=== PATIENT | female | born 1970 | race Caucasian/White ===

== ENCOUNTER 2018-11-18 12:00 | Day surgery (SDC) | payer OTHER ==
[2018-11-17 18:58] VITALS: BMI 22.3
[2018-11-18] MEDS ORDERED: ROPIVACAINE HCL 0.5% 30ML VIAL ONE (13:27)
[2018-11-18] MEDS ORDERED: MIDAZOLAM HCL 2 MG/2 ML SINGLE DOSE VIAL ONE ×3 (13:27→15:10)
[2018-11-18] MEDS ORDERED: DEXAMETHASONE SOD PHOSPHATE/PF 10 MG/ML SDV ONE (13:27)
[2018-11-18] MEDS ORDERED: SUCCINYLCHOLINE CHLORIDE 200 MG/10 ML SYRINGE ONE (15:10)
[2018-11-18] MEDS ORDERED: PROPOFOL 20 ML ONE ×4 (15:10→15:13)
[2018-11-18] MEDS ORDERED: GUM MASTIC/STORAX/MSAL/ALCOHOL 1 DRP DROPSBTL MC ONE (16:13)
[2018-11-18] MEDS ORDERED: PROMETHAZINE HCL 25 MG/1 ML VIAL IVPUSH PRN (16:32)
[2018-11-18] MEDS ORDERED: ONDANSETRON 4 MG/2 ML VIAL IVPUSH PRN (16:32)
[2018-11-18] MEDS ORDERED: oxyCODONE HCL 5 MG TABLET PO PRN ×2 (16:32)
[2018-11-18 17:11] VITALS: TEMP 97.4
[2018-11-18 18:27] VITALS: BP 124/74; PULSE 78
--- NOTE | 2018-11-19 19:28 | OP ---
DATE OF OPERATION: 11/18/2018 SURGEON: Arpna Silav M.D. [employer] SWEEPER OPERATOR: Mariela Grossman ANESTHESIA: Regional. COMPLICATIONS: None. ESTIMATED BLOOD LOSS: Minimal. PREOPERATIVE DIAGNOSIS: Left comminuted displaced distal radius fracture. POSTOPERATIVE DIAGNOSIS: Left comminuted displaced distal radius fracture. OPERATIVE PROCEDURE: Open reduction, internal fixation of comminuted displaced distal radius fracture with internal fixation of 3 or more fragments. INDICATION FOR PROCEDURE: The patient is a 48-year-old female with the above findings, indicated for operative treatment. Risks, benefits, and alternatives were discussed with the patient at length. Proper informed consent was obtained. DESCRIPTION OF PROCEDURE: After proper identification of the patient and correct operative site, patient was brought to the operating room and placed supine on the operating room table, all bony prominences well padded. Sedation and regional anesthesia were given. Left upper extremity was prepped and draped in the usual sterile fashion. Well padded tourniquet was placed with a sterile prep. Esmarch bandage to exsanguinate the left upper extremity. Tourniquet inflated to 250 mmHg. Proximal incision made over the flexor carpi radialis tendon, with blunt and sharp dissection was brought through subcutaneous tissue. Flexor carpi radialis tendon along with the contents of the carpal canal were bluntly and gently retracted in an ulnarward direction for the end of the procedure. divided longitudinally off the distal radius and elevated. Fracture was found to be comminuted and displaced and was reduced in a satisfactory position and held with an Acumed Acu-Loc 2 distal radius plate with 4 distal locking pegs and screws and 3 proximal bicortical nonlocking screws. This provided secure stable anatomic fixation of the fracture confirmed radiographically. Full range of motion was achieved. There was interval. Wound was irrigated with saline, repaired in layers including the pronator quadratus with 4-0 Vicryl and 4-0 Monocryl suture. Steri-Strips, sterile dressing, and a splint were placed. Patient was reversed from anesthesia and brought to recovery in stable condition. She tolerated procedure well. Jeb Sahu, the physiotherapist's assistant, was integral throughout the procedure. Procedure could not have been performed without a skilled operative physiotherapist's assistant. ARPAN SILVA M.D. [id number]
== END 2018-11-18 18:25 | disposition home or self-care (01) ==
LOC: FASU 12:00
PROVIDERS: ATTEND Orthopaedic Surgery Hand Surgery
PROC: 0PSJ04Z Reposition Left Radius with Internal Fixation Device, Open Approach (ICD-10-PCS; principal; 2018-11-18 15:34)
DX: S52.532A Colles' fracture of left radius, initial encounter for closed fracture (principal); X58.XXXA Exposure to other specified factors, initial encounter; Y93.9 Activity, unspecified; Y92.9 Unspecified place or not applicable
CPT/HCPCS: 73110-TC-LT-FY; 73130-TC-LT-FY; 84703; 94760

== ENCOUNTER → 2020-11-20 | Day surgery (SDC) | payer OTHER ==
[~2020-11-20] MED LIST: DEXAMETHASONE SOD PHOSPHATE 4 MG/1 ML VIAL ONE; KETOROLAC TROMETHAMINE 30 MG/1 ML VIAL ONE; MIDAZOLAM HCL 2 MG/2 ML SINGLE DOSE VIAL ONE; ONDANSETRON 4 MG/2 ML VIAL IVPUSH PRN; PROMETHAZINE HCL 25 MG/1 ML VIAL IVPUSH PRN; PROPOFOL 20 ML ONE; oxyCODONE HCL 5 MG TABLET PO PRN
[2020-11-20 09:34] VITALS: BMI 22.3
[2020-11-20 13:56] VITALS: TEMP 97.1
[2020-11-20 14:27] VITALS: BP 133/66; PULSE 44
== END | disposition home or self-care (01) ==
LOC: JASU-SURG 04:21
PROVIDERS: ATTEND Obstetrics & Gynecology
PROC: 0UDB7ZX Extraction of Endometrium, Via Natural or Artificial Opening, Diagnostic (ICD-10-PCS; principal; 2020-11-20 11:30)
PROC: 0UJD8ZZ Inspection of Uterus and Cervix, Via Natural or Artificial Opening Endoscopic (ICD-10-PCS; 2020-11-20 11:30)
DX: N92.4 Excessive bleeding in the premenopausal period (principal); N84.0 Polyp of corpus uteri; D25.9 Leiomyoma of uterus, unspecified
CPT/HCPCS: 94760